=== PATIENT | female | born 2000 | race Caucasian/White ===

== ENCOUNTER 2023-05-30 11:49 | Outpatient (CLI) | payer OTHER, SELFPAY ==
--- NOTE | ~2023-05-30 | US_ITS ---
EXAMINATION: US venous doppler LE RT DATE: 05/30/2023 12:16 INDICATION: Right lower limb pain TECHNIQUE: Lincoln scale images without and with compression and Doppler images of the right lower extre mity veins were obtained. COMPARISON: None FINDINGS: The right common femoral vein, profunda femoral vein, femoral vein, popliteal vein, peronea l trunk, posterior tibial veins, and greater saphenous vein are patent. IMPRESSION: 1. Patent right lower extremity veins. No evidence of deep venous thrombosis. Reviewed, dictated and finalized at location A.
== END 2023-05-30 11:50 | disposition home or self-care (01) ==
LOC: ANHIMG 11:55
DX: M79.661 Pain in right lower leg (principal)
CPT/HCPCS: 93971

== ENCOUNTER 2023-06-28 11:47 | Observation (INO) | payer OTHER, SELFPAY ==
[2023-06-28] VITALS (18 sets, daily range): BP systolic 111–126; BP diastolic 64–76; PULSE 87–133; O2SAT 95–99; BMI 30.7
--- NOTE | 2023-06-28 12:04 | LDADM ---
This patient, Swapna Waddell, was admitted to OB Post 116 on 06/28/23 at 11:47. Plans for labor, pain management and were discussed with patient. Patient/family oriented to hospital policies and general routines including ID bracelet, bed and alarms, visiting hours, pain management, procedures, bathroom and other care routines, personal items, smoking policy, room service/diet and guest tray routines, infant security routines, and visiting hours. Patient/Family are encouraged to report perceived risks to care and to ask questions if they do not understand what they are told or what they should do. See OBIX for further documentation.
--- NOTE | 2023-06-28 12:25 | PC.NURSE ---
Patient was seen in office and was reza on monitor. Patient admitted for observation on L&D unit. Patient denies feeling any contractions. Patient states she has not had any water today. Patient given 1L of water to PO hydrate. fibronectin test sent and sterile cervical exam performed. Patient's cervix was found to be closed/50/-3.
[2023-06-28 13:34] LABS: Fetal Fibronectin Positive
--- NOTE | 2023-06-28 13:43 | PC.NURSE ---
Called CNM to report patient's regular contractions and positive FFN result as well as notify provider of cervical exam. Patient still denies feeling contractions, and they palpate very mild. Verbal orders received for one dose of Procardia XL and continue to monitor until hearing back from CNM.
--- NOTE | 2023-06-28 13:47 | PC.NURSE ---
Received callback from [facility]. Verbal orders received for steroid injection as well. Orders to continue monitoring patient for one hour and call provider back with update on patient status.
[2023-06-28] MEDS: BETAMETHASONE SOD PHOS/ACETATE 30 MG/5 ML VIAL 12 MG IM (13:55)
[2023-06-28] MEDS: NIFEdipine 30 MG TAB.ER.24 PO (13:55)
--- NOTE | 2023-06-28 14:52 | PC.NURSE ---
Called CNM and reported heart tones are still Category I, but the patient is still reza (palpating mildly) every 1-4 minutes. Patient still demies feeling any contractions. Verbal orders placed for 0.25mg subQ terbutaline.
[2023-06-28] MEDS: TERBUTALINE SULFATE 1 MG/ML VIAL 0.25 MG SUB-Q (14:58)
--- NOTE | 2023-06-28 15:59 | PC.NURSE ---
Updated CNM on continued monitoring. FHT still Category I. Notified provider that patient is still reza but not feeling any of them, and they have spaced out from where they were. Verbal orders given for discharge with instructions for patient to return to unit if she begins feeling any contractions at home as well as labor precautions. Patient to return tomorrow 06/29/23 for her second dose of celestone. Patient agrees with plan of care and has no questions at this time.
--- NOTE | 2023-07-02 08:09 | PM.OBTRLD ---
OB - Triage/Final Diagnosis Visit Information Date of evaluation: 06/28/23 Reason for evaluation: threatened labor Comments/Additional reasons for admission: I have assessed the risk for this patient, Swapna Waddell, and determined that she would benefit from observation care. Evaluation Laboratory results: Laboratory Tests 06/28/23 12:35 Fibronectin Positive
== END 2023-06-28 16:17 | disposition home or self-care (01) ==
PROVIDERS: Admitting Provider Obstetrics & Gynecology; Referring Provider Advanced Practice Midwife; Visit Provider Obstetrics & Gynecology
DX: O47.9 False labor, unspecified (principal)
CPT/HCPCS: 82731; 96372; A9270; G0378; G0379; J0702; J3105

== ENCOUNTER 2023-06-29 13:53 | Outpatient (CLI) | payer OTHER, SELFPAY ==
[2023-06-29] MEDS: BETAMETHASONE SOD PHOS/ACETATE 30 MG/5 ML VIAL 12 MG IM (14:04)
== END 2023-06-29 13:54 | disposition home or self-care (01) ==
LOC: ANHOBOP 13:59
PROVIDERS: Visit Provider Obstetrics & Gynecology
DX: Z34.90 Encounter for supervision of normal pregnancy, unspecified, unspecified trimester (principal); Z3A.00 Weeks of gestation of pregnancy not specified
CPT/HCPCS: 96372; J0702

== ENCOUNTER 2023-06-30 10:48 | Observation (INO) | payer OTHER, SELFPAY ==
[2023-06-30] VITALS (15 sets, daily range): BP systolic 107–115; BP diastolic 60–62; PULSE 94–124; TEMP 36.6; O2SAT 100
--- NOTE | 2023-06-30 11:49 | OBADM ---
This patient, Swapna Waddell, admitted to the OB room OB Post 116 for observation. Patient/family oriented to hospital policies and general routines including ID bracelet, bed and alarms, visiting hours, pain management, procedures, bathroom and other care routines, personal items, smoking policy, room service/diet, and visiting hours. Patient/Family are encouraged to report perceived risks to care and to ask questions if they do not understand what they are told or what they should do.
[2023-06-30 11:56] LABS: Appearance Urine Clear (Clear); Bilirubin Urine Negative (Negative); Blood Urine Negative (Negative); Color Urine Yellow (Yellow); Glucose Urine UA Negative (Negative); Ketones Urine 4+ mg/dL (Negative); Leukocyte Esterase Ur Negative LEU/UL (Negative); Nitrate Urine Negative (Negative); Protein Urine Negative (Negative); Specific Grav Ur 1.012 (1.001-1.035); Urobilinogen Urine 0.2 mg/dL (<2.0)
[2023-06-30 12:38] LABS: Add Urine Microscopic? NO
[2023-06-30] MEDS: TERBUTALINE SULFATE 1 MG/ML VIAL 0.25 MG SUB-Q (12:52)
--- NOTE | 2023-07-26 11:23 | P.PNOB_ITS ---
OB - Triage/Final Diagnosis Visit Information Comments/Additional reasons for admission: I have assessed the risk for this patient, Swapna Waddell, and determined that she would benefit from observation care. Evaluation Laboratory results: Laboratory Tests 06/30/23 11:27 Urine Color Yellow Urine Appearance Clear Urine pH 6.0 Ur Specific [place] 1.012 Urine Protein Negative Urine Glucose (UA) Negative Urine Ketones 4+ H Ur Blood (Man) Negative Urine Nitrate Negative Urine Bilirubin Negative Urine Urobilinogen 0.2 Leukocyte Esterase Rfl Negative Final Diagnosis (1) False labor: Code(s): O47.9 - False labor, unspecified Status: Acute
== END 2023-06-30 13:56 | disposition home or self-care (01) ==
PROVIDERS: Admitting Provider Obstetrics & Gynecology; Visit Provider Obstetrics & Gynecology
DX: O47.03 False labor before 37 completed weeks of gestation, third trimester (principal); Z3A.33 33 weeks gestation of pregnancy
CPT/HCPCS: 81003; 96372; G0378; G0379; J3105

== ENCOUNTER 2023-08-07 06:02 | Inpatient (IN) | payer OTHER, SELFPAY ==
[2023-08-07] VITALS (240 sets, daily range): BP systolic 62–146; BP diastolic 32–101; PULSE 91–177; RESP 16–18; TEMP 36.3–37.2; O2SAT 92–100; BMI 31.1
--- NOTE | 2023-08-07 07:10 | ADMGEN ---
This patient, Swapna Waddell, was admitted to Labor/Delivery/Recovery 103-00. Patient/family oriented to hospital policies and general routines including ID bracelet, bed and alarms, visiting hours, pain management, procedures, bathroom and other care routines, personal items, smoking policy, room service/diet, and visiting hours. Information on how to activate the Rapid Response Team has been discussed. Patient/Family are encouraged to report perceived risks to care and to ask questions if they do not understand what they are told or what they should do.
[2023-08-07 07:21] LABS: Glucose Point of Care 96 mg/dl (65-105)
[2023-08-07 07:33] LABS: Basophils Absolute Auto 0.1 K/mm3 (0.0-0.1); Basophils Percent Auto 0.4 % (0.2-1.2); Eosinophils Absolute Auto 0.1 K/mm3 (0-0.3); Eosinophils Percent Auto 0.7 % (0-4.4); Hematocrit 37.6 % (37.0-47.0); Hemoglobin 12.4 g/dL (12.0-15.0); Immature Granulocyte Absolute 0.24 K/mm3 (0.00-0.031); Immature Granulocyte Percent A 1.8 % (0-0.5); Lymphocytes Absolute Auto 2.17 K/mm3 (0.9-3.2); Lymphocytes Percent Auto 16.2 % (18.3-44.2); Mean Platelet Volume 9.7 fl (7.4-10.4); Monocytes Absolute Auto 0.8 K/mm3 (0.1-0.6); Monocytes Percent Auto 5.7 % (2.6-8.5); Neutrophils Absolute Auto 10.1 K/mm3 (1.3-6.7); Neutrophils Percent Auto 75.2 % (45.5-73.1); Platelet Count Result 185 k/mm3 (150-375); White Blood Count 13.4 K/mm3 (4.5-10.0)
--- NOTE | 2023-08-07 08:06 | WPDOBADMIT ---
Obstetrics - Admit Note Admission Note: record reviewed. No pertinent additions to the history and/or any subsequent changes in the physical findings that are not consistent with the expected course of the were found. Additions to the history and/or subsequent changes in the physical findings follow. IOL GDMA-1, SVE3/80/-2 AROM clear fluid, anticipate vaginal delivery
[2023-08-07] MEDS: LACTATED RINGERS 1,000 ML 125 ML IV CONT ×3 (10:44→17:00)
[2023-08-07 11:03] LABS: Rapid Plasma Reagin Non-Reactive (NonReactive)
[2023-08-07 11:10] LABS: Glucose Point of Care 104 mg/dl (65-105)
[2023-08-07] MEDS: fentaNYL CITRATE INJ (*CRX) 100 MCG/2 ML VIAL IV PUSH (11:35)
[2023-08-07 14:19] LABS: Glucose Point of Care 85 mg/dl (65-105)
--- NOTE | 2023-08-07 14:37 | WPDANESEPPF ---
Anes - Initial Pre Proc Eval Procedure: labor epidural Date/Time: 08/07/23 14:37 Surgeon: Rip Almanza MD Pre Op Diagnosis: labor pain Pre Op Diagnosis: IOL Patient Data Age: 23 Gender: F Height: 1.5 m Weight: 70 kg Last Vital Signs Temp 36.4 C L 08/07/23 13:00 Pulse 101 H 08/07/23 14:30 BP 135/77 08/07/23 14:30 Pulse Ox 100 08/07/23 14:34 O2 Del Method Room Air 08/07/23 07:07 Allergies Allergy/AdvReac Type Severity Reaction Status Date / Time No Known Allergies Allergy Verified 08/07/23 09:22 Home Medications Medication Instructions Recorded Confirmed Type vits no.126-ferrous fum 1 tablet PO DAILY 06/28/23 08/07/23 History 28 mg iron-folic acid 800 mcg tablet (Classic ) ferrous sulfate 325 mg (65 mg 325 mg PO DAILY 07/12/23 08/07/23 History iron) tablet Laboratory Tests 08/07/23 08/07/23 08/07/23 06:55 07:04 11:04 WBC 13.4 H K/mm3 (4.5-10.0) RBC 4.00 L M/mm3 (4.2-5.4) Hgb 12.4 g/dL (12.0-15.0) Hct 37.6 % (37.0-47.0) MCV 94.0 fl (80-100) MCH 31.0 pg (26-34) MCHC 33.0 g/dl (32-36) RDW 14.0 % (11.5-14.5) Plt Count 185 k/mm3 (150-375) MPV 9.7 fl (7.4-10.4) Immature Gran % (Auto) 1.8 H % (0-0.5) Neut % (Auto) 75.2 H % (45.5-73.1) Lymph % (Auto) 16.2 L % (18.3-44.2) [place] % (Auto) 5.7 % (2.6-8.5) Eos % (Auto) 0.7 % (0-4.4) Baso % (Auto) 0.4 % (0.2-1.2) Lymph # (Auto) 2.17 K/mm3 (0.9-3.2) [place] # (Auto) 0.8 H K/mm3 (0.1-0.6) Eos # (Auto) 0.1 K/mm3 (0-0.3) Baso # (Auto) 0.1 K/mm3 (0.0-0.1) Abs Immat Gran (auto) 0.24 H K/mm3 (0.00-0.031) Absolute Neuts (auto) 10.1 H K/mm3 (1.3-6.7) Absolute Nucleated RBC 0.0 K/mm3 (0.0-0.012) Nucleated RBC % 0.0 % (0.0-0.2) POC Capillary Glucose 96 mg/dl 104 mg/dl (65-105) (65-105) RPR Non-reactive (NonReactive) Blood Type A Positive Antibody Screen Negative 08/07/23 14:16 WBC RBC Hgb Hct MCV MCH MCHC RDW Plt Count MPV Immature Gran % (Auto) Neut % (Auto) Lymph % (Auto) [place] % (Auto) Eos % (Auto) Baso % (Auto) Lymph # (Auto) [place] # (Auto) Eos # (Auto) Baso # (Auto) Abs Immat Gran (auto) Absolute Neuts (auto) Absolute Nucleated RBC Nucleated RBC % POC Capillary Glucose 85 mg/dl (65-105) RPR Blood Type Antibody Screen Patient hx anesthesia problems: none Family hx anesthesia problems: none Results Review: All pre-operative results and documents have been reviewed as part of the pre-operative evaluation. [facility] Past Medical History Medical History (Updated 08/07/23 @ 14:38 by Temo Cotton DO) GDM (gestational diabetes mellitus) Family History Family History (Updated 07/12/23 @ 12:15 by Estelle Mchugh RN) Other Patient denies significant medical history Social History Social History Smoking status: Never smoker Substance use: never Lack of Transportation: No Lack of Food: Never True Current Housing: I Have Housing Concerned About Future Housing: No Difficulty Paying Gas/Electric Bills: No Difficulty Paying for Meds: No Currently Unemployed: No Education: High School Diploma/GED Difficulty w/ Childcare or Family Care: No Spiritual care concerns: No Anes - Eval Final PreProcedure Day of Procedure 08/07/23 14:37 Patient weight: obese Heart: regular rate and rhythm Lungs: clear to auscultation Airway: Mallampati scale class II Neurological: alert and oriented Last oral intake: >/= 8 hours ASA classification: III Emergent: no Anes
[2023-08-07 15:58] LABS: Glucose Point of Care 84 mg/dl (65-105)
[2023-08-07 17:28] LABS: Glucose Point of Care 81 mg/dl (65-105)
--- NOTE | 2023-08-07 21:17 | PM.OP ---
Procedure Note - Brief Procedure Note - Brief Date of procedure: 08/07/23 IOL, failure to descend Procedure performed: Attempted vacuum extraction of fetus Surgeon: Rip Almanza MD Findings: kiwi vacuum was applied to the 's head in the occipital area. Infant was in the left occiput anterior position 3+ station vacuum was applied for 3 contractions for total of about 2 minutes there were no pop offs there was no episiotomy epidural anesthesia indication - maternal exhaustion and failure to descend vacuum was taken down in between contractions failed attempt
--- NOTE | 2023-08-07 21:24 | PM.IMHP ---
H&P: HPI History of Present Illness Date/Time: 08/07/23 21:24 Chief Complaint: failure to descend, failed vacuum Narrative: 23-year-old female who was induced at term for gestational diabetes, diet control. Induction progress to the +3 station where there was an arrest of descent. Reassuring heart tones throughout the labor and procedure. failed vacuum was performed. There is a procedure note. We are going to proceed to delivery. She understands the risk. She understands injuries may occur that result in hospitalization, more surgery, and severe illness. She understands risk of hemorrhage and infection. She denies any nausea, vomiting, fever, chills. She denies any chest pain shortness of breath. Review of Systems Review of Systems: All systems reviewed & are unremarkable except as noted in HPI and below Constitutional: Constitutional: Denies chills, Denies fatigue, Denies fever(s) and Denies weakness Eyes: Eyes: Denies blurry vision, Denies change in vision, Denies loss of peripheral vision, Denies loss of vision, Denies other visual disturbances and Denies eye pain ENT: Denies vertigo, Denies dizziness, Denies hearing loss, Denies mouth pain, Denies nasal obstruction, Denies neck mass and Denies neck pain Cardiovascular: Cardiovascular: Denies chest pain, Denies diaphoresis, Denies syncope, Denies leg edema and Denies dyspnea Respiratory: Respiratory: Denies chest congestion, Denies cough, Denies hemoptysis, Denies dyspnea and Denies wheezing Gastrointestinal: Gastrointestinal: Denies abdominal pain, Denies constipation, Denies diarrhea, Denies nausea and Denies vomiting Genitourinary: Genitourinary: Denies hematuria, Denies change in libido, Denies nocturia, Denies genital lesions, Denies flank pain and Denies urinary urgency Musculoskeletal: Musculoskeletal: Denies abnormal gait, Denies back pain, Denies myalgias, Denies arthralgias, Denies joint swelling, Denies muscle weakness and Denies neck pain Integumentary/Breasts: Skin/Breast: Denies swelling, Denies breast pain, Denies breast mass, Denies dry skin, Denies nipple discharge, Denies unusual bruising and Denies jaundice Neurologic: Denies Neuro-related abnormal movements, Denies Abnormal speech present, Denies abnormal gait, Denies behavioral changes, Denies confusion, Denies vertigo, Denies dizziness, Denies syncope, Denies loss of vision, Denies memory loss, Denies convulsions and Denies weakness Psychiatric: Psychiatric: Denies abnormal sleep pattern, Denies behavioral changes, Denies change in libido, Denies confusion, Denies depression, Denies anhedonia and Denies memory loss Endocrine: Endocrine: Reports no additional endocrine complaints, Denies change in libido and Denies fatigue Hematologic/Lymphatic: Hematologic/Lymphatic: Reports no additional hematologic/lymphatic complaints Allergic/Immunologic: Allergic/Immunologic: Reports no additional allergic/immunologic complaints and Denies wheezing PMFSH Past Medical History Medical History (Updated 08/07/23 @ 21:28 by Rip Almanza MD) GDM (gestational diabetes mellitus) Family History Family History (Updated 07/12/23 @ 12:15 by Estelle Mchugh RN) Other Patient denies significant medical history Social History Social History Smoking status: Never smoker Substance use: never Lack of Transportation: No Lack of Food: Never True Current Housing: I Have Housing Concerned About Future Housing: No Difficulty Paying Gas/Electric Bills: No Difficulty Paying for Meds: No Currently Unemployed: No Education: High School Diploma/GED Difficulty w/ Childcare or Family Care: No Spiritual care concerns: No Meds Home Medications and Allergies Home Medications Medication Instructions Recorded Confirmed Type vits no.126-ferrous fum 1 tablet PO DAILY 06/28/23 08/07/23 History 28 mg iron-folic acid 800 mcg tablet (Classic ) ferrou
--- NOTE | 2023-08-07 21:29 | WPDHPUPDATE1 ---
History and Physical Update Update Date/Time: 08/07/23 21:29 History and Physical has been reviewed, including an updated exam of the patient. There are NO changes in the patient's condition. Risks, benefits, and alternatives have been discussed and questions answered. Patient agrees to proceed with procedure.
[2023-08-07] MEDS: ceFAZolin 2 GM/D5W 50 ML 2 GM/50 ML BAG IVPB (21:30)
[2023-08-07] MEDS: AZITHROMYCIN 500 MG/NS 250 ML 500 MG/250 ML BAG 250 MG IVPB (21:30)
[2023-08-07 21:31] LABS: Glucose Point of Care 102 mg/dl (65-105)
--- NOTE | 2023-08-07 22:28 | W.PM.PROC2 ---
Procedure Note - Detailed Date of Procedure 08/07/23 Pre-op Diagnosis IOL , failure to descend, failed vacuum extraction, vaginal laceration Post-op Diagnosis Same Procedure Performed Low-transverse section Surgeon Rip Almanza MD Anesthesia Spinal Findings Normal gestational maternal anatomy, average size , normal Apgars. Description of Procedure The patient was taken the operating room. She was prepped and draped in dorsal supine position with a leftward tilt. This was done after spinal anesthetic was applied. A low-transverse skin incision was made and carried down till of the fascia with the knife. The fascial incision was made with the knife. The fascial incision was extended laterally with Leyva scissors. The fascia was tented upward superiorly and inferiorly the rectus muscles were dissected off bluntly. The rectus muscles were the midline. The preperitoneal fat and peritoneum were dissected open bluntly at the superior aspect of the rectus muscles. The peritoneal incision was extended superior and inferior with good position of bladder. The uterine incision was made with a scalpel down to the level of the amniotic cavity. The amniotic cavity was entered bluntly. The was delivered. The cord was clamped and cut and the infant was handed off to waiting pediatric staff. Cord bloods were obtained. The placenta was removed manually. The uterus was exteriorized. The uterus was cleared of all clots, debris and membranes. The uterus was closed in 0 Vicryl running lock fashion. An imbricating over a was placed along the incision line as well. The uterus was returned to the abdomen. The gutters were cleared of all clots and debris. The fascia was closed with 0 Vicryl running fashion. The subcutaneous tissue was irrigated pinpoint bleeders were cauterized. The skin was closed with subcuticular absorbable ishaan. The skin incision line was covered with glue. vaginal laceration was closed with a running 0 Vicryl, locked. This was the midline laceration. There were distal left lateral vaginal lacerations that were closed with interrupted [id number] sutures. Was hemostatic at the end of the closure. The patient tolerated the procedure well. She has taken recovery room in stable condition. Sponge lap and needle counts were correct x2. Complications No immediate complications Condition Stable Disposition PACU
[2023-08-07] MEDS: OXYTOCIN 30 UNITS/NS 500 ML 30 UNITS/500 ML BAG 125 UNITS IV CONT (22:57)
[2023-08-07] MEDS: METHYLERGONOVINE MALEATE 0.2 MG/ML VIAL IM (22:58)
[2023-08-07 23:27] LABS: Hematocrit 27.1 % (37.0-47.0); Hemoglobin 8.8 g/dL (12.0-15.0); Mean Corpuscular HGB Conc 32.5 g/dl (32-36); Mean Corpuscular Hemoglobin 30.9 pg (26-34); Mean Corpuscular Volume 95.1 fl (80-100); Mean Platelet Volume 9.7 fl (7.4-10.4); Platelet Count Result 143 k/mm3 (150-375); Red Blood Count 2.85 M/mm3 (4.2-5.4); Red Cell Distribution Width 13.9 % (11.5-14.5); White Blood Count 31.2 K/mm3 (4.5-10.0)
[2023-08-08] VITALS (75 sets, daily range): BP systolic 90–117; BP diastolic 42–67; PULSE 99–141; RESP 16–20; TEMP 36.4–36.9; O2SAT 96–100
[2023-08-08] MEDS: miSOPROStol 200 MCG TABLET 800 MCG RECTAL (00:47)
[2023-08-08] MEDS: LORazepam INJ (*CRX) 2 MG/ML VIAL 1 MG IV PUSH (00:47)
[2023-08-08] MEDS: DEXTROSE 5%/LACTATED RINGERS 1,000 ML 125 ML (03:05)
[2023-08-08] MEDS: KETOROLAC 30 MG/ML VIAL (*BKC) IV PUSH (05:35)
[2023-08-08 05:50] LABS: Basophils Absolute Auto 0.1 K/mm3 (0.0-0.1); Basophils Percent Auto 0.3 % (0.2-1.2); Hemoglobin 7.6 g/dL (12.0-15.0); Immature Granulocyte Absolute 0.31 K/mm3 (0.00-0.031); Immature Granulocyte Percent A 1.1 % (0-0.5); Lymphocytes Absolute Auto 1.46 K/mm3 (0.9-3.2); Lymphocytes Percent Auto 5.1 % (18.3-44.2); Mean Corpuscular Hemoglobin 31.4 pg (26-34); Monocytes Absolute Auto 1.2 K/mm3 (0.1-0.6); Monocytes Percent Auto 4.3 % (2.6-8.5); Neutrophils Absolute Auto 25.7 K/mm3 (1.3-6.7); Neutrophils Percent Auto 89.2 % (45.5-73.1); Platelet Count Result 132 k/mm3 (150-375); Red Blood Count 2.42 M/mm3 (4.2-5.4); Red Cell Distribution Width 13.9 % (11.5-14.5); White Blood Count 28.8 K/mm3 (4.5-10.0)
[2023-08-08 07:07] LABS: Anisocytosis 1+ (NORMAL); Hypochromasia 3+ (NORMAL); Platelet Estimate Adequate (Adequate); Schistocytes None Seen (NORMAL); Tear Drop Cells 1+ (NORMAL)
--- NOTE | 2023-08-08 08:01 | PC.NURSE ---
Kahlil Marquis CNM in to see pt and informed of CBC from this morning, fundus required massage to become totally firm, pt didn't have much on her peripad before I rubbed on her uterus, but with fundal massage, she had more flow than I would like to see. Order received for 2 units of blood and PO Methergine x's 3 doses. To leave kline in until at least 1 unit of the blood has infused and pt tolerates being up in chair.
[2023-08-08] MEDS: METHYLERGONOVINE MALEATE 0.2 MG TABLET PO ×2 (08:45→17:17)
--- NOTE | 2023-08-08 08:49 | PM.OBPNVD ---
OB - PN: Subj Subjective Date/time seen: 08/08/23 08:49 Interval history: pp day 1 failed vacuum extraction, primary section doing well plan blood transfusion plan oral methergine OB - PN: Obj Data Labs 08/08/23 05:46 Labs: Laboratory Results - last 24 hr 08/07/23 08/07/23 08/07/23 06:55 11:04 14:16 WBC RBC Hgb Hct MCV MCH MCHC RDW Plt Count MPV Immature Gran % (Auto) Neut % (Auto) Lymph % (Auto) [place] % (Auto) Eos % (Auto) Baso % (Auto) Lymph # (Auto) [place] # (Auto) Eos # (Auto) Baso # (Auto) Abs Immat Gran (auto) Absolute Neuts (auto) Absolute Nucleated RBC Nucleated RBC % Platelet Estimate Hypochromasia Anisocytosis Tear Drop Cells Schistocytes POC Capillary Glucose 104 85 RPR Non-reactive Blood Type A Positive Antibody Screen Negative Crossmatch See Detail 08/07/23 08/07/23 08/07/23 15:53 17:20 20:06 WBC RBC Hgb Hct MCV MCH MCHC RDW Plt Count MPV Immature Gran % (Auto) Neut % (Auto) Lymph % (Auto) [place] % (Auto) Eos % (Auto) Baso % (Auto) Lymph # (Auto) [place] # (Auto) Eos # (Auto) Baso # (Auto) Abs Immat Gran (auto) Absolute Neuts (auto) Absolute Nucleated RBC Nucleated RBC % Platelet Estimate Hypochromasia Anisocytosis Tear Drop Cells Schistocytes POC Capillary Glucose 84 81 102 RPR Blood Type Antibody Screen Crossmatch 08/07/23 08/08/23 23:21 05:46 WBC 31.2 H 28.8 H RBC 2.85 L 2.42 L Hgb 8.8 L D 7.6 L Hct 27.1 L 23.0 L MCV 95.1 95.0 MCH 30.9 31.4 MCHC 32.5 33.0 RDW 13.9 13.9 Plt Count 143 L 132 L MPV 9.7 9.0 Immature Gran % (Auto) 1.1 H Neut % (Auto) 89.2 H Lymph % (Auto) 5.1 L [place] % (Auto) 4.3 Eos % (Auto) 0.0 Baso % (Auto) 0.3 Lymph # (Auto) 1.46 [place] # (Auto) 1.2 H Eos # (Auto) 0.0 Baso # (Auto) 0.1 Abs Immat Gran (auto) 0.31 H Absolute Neuts (auto) 25.7 H Absolute Nucleated RBC 0.0 Nucleated RBC % 0.0 Platelet Estimate Adequate Hypochromasia 3+ Anisocytosis 1+ Tear Drop Cells 1+ Schistocytes None seen POC Capillary Glucose RPR Blood Type Antibody Screen Crossmatch OB - PN A/P Plan day: 1 Plan: routine care Time Spent With Patient Time: Total time spent is greater than 50% in coordination of care (as documented) at patient's floor/unit and/or counseling patient: Review of Systems Review of Systems: All systems reviewed & are unremarkable except as noted in HPI and below Exam Const: General: cooperative, healthy appearing and comfortable Chest: Chest palpation & inspection: normal inspection of the chest Resp: Effort & Inspection: normal respiratory effort Cardio: Rate: regular rate GI: Other: incision CDI Skin: General skin exam: normal color Neuro: General: patient oriented x3 Extrem: Right lower extremity: normal to inspection Left lower extremity: normal to inspection Psych: Appearance: grossly normal
[2023-08-08] MEDS: SODIUM CHLORIDE 0.9% IV 250 ML 30 ML IV CONT (09:15)
[2023-08-08] MEDS: WITCH HAZEL 40 PADS 1 PAD TOPICAL (11:18)
[2023-08-08] MEDS: MULTIVIT/MIN/PREN/FOL AC/IRON TABLET 1 TAB PO (11:18)
[2023-08-08] MEDS: POLYSACCHARIDE IRON COMPLEX 150 MG CAPSULE PO ×2 (11:18→17:00)
[2023-08-08] MEDS: DOCUSATE SODIUM 100 MG CAPSULE PO ×2 (11:18→17:16)
[2023-08-08] MEDS: BENZOCAINE 20% AER SPR (*SP) 56 GM CAN 1 SPRAY TOPICAL (11:18)
--- NOTE | 2023-08-08 12:39 | OBPPTRN ---
Patient transferred to post room # 286 via bed accompanied by fob and infant. PT alert and awake. PT introductions made and plan of care discussed per post op c section, pain management, breast feeding, daily care activities and blood product administrations. PT and fob both recipients of such instructions and no barriers to learning identified. PT received such instructions per one to one discussion, mom baby care guide and demonstrations. Oriented to unit, room, information board, rooming in, admission packet and security measures. Patient verbalizes understanding.
[2023-08-08] MEDS: SIMETHICONE 80 MG TAB.CHEW PO ×2 (13:08→17:17)
[2023-08-08] MEDS: HYDROcodone/acetaminophen (*CRX) 5-325 MG TABLET 1 TAB PO ×3 (13:09→21:38)
[2023-08-08] MEDS: IBUPROFEN 600 MG TABLET PO ×2 (13:09→21:39)
[2023-08-08] MEDS: SODIUM CHLORIDE 0.9% IV 500 ML 30 ML (14:07)
[2023-08-08] MEDS: TUBING, BLOOD PLUM PUMP TUBING 1 EACH XX (14:07)
[2023-08-09] MEDS: METHYLERGONOVINE MALEATE 0.2 MG TABLET PO (00:37)
[2023-08-09] MEDS: IBUPROFEN 600 MG TABLET PO ×3 (05:33→22:48)
[2023-08-09] MEDS: HYDROcodone/acetaminophen (*CRX) 5-325 MG TABLET 1 TAB PO ×3 (05:33→22:51)
[2023-08-09 05:42] LABS: Basophils Absolute Auto 0.1 K/mm3 (0.0-0.1); Basophils Percent Auto 0.3 % (0.2-1.2); Eosinophils Percent Auto 0.1 % (0-4.4); Hematocrit 31.4 % (37.0-47.0); Hemoglobin 10.4 g/dL (12.0-15.0); Immature Granulocyte Absolute 0.51 K/mm3 (0.00-0.031); Immature Granulocyte Percent A 1.9 % (0-0.5); Lymphocytes Absolute Auto 2.63 K/mm3 (0.9-3.2); Lymphocytes Percent Auto 9.5 % (18.3-44.2); Mean Corpuscular HGB Conc 33.1 g/dl (32-36); Mean Corpuscular Hemoglobin 30.8 pg (26-34); Mean Corpuscular Volume 92.9 fl (80-100); Mean Platelet Volume 9.6 fl (7.4-10.4); Monocytes Absolute Auto 1.2 K/mm3 (0.1-0.6); Monocytes Percent Auto 4.2 % (2.6-8.5); Neutrophils Absolute Auto 23.2 K/mm3 (1.3-6.7); Platelet Count Result 146 k/mm3 (150-375); Red Blood Count 3.38 M/mm3 (4.2-5.4); Red Cell Distribution Width 14.9 % (11.5-14.5); White Blood Count 27.6 K/mm3 (4.5-10.0)
--- NOTE | 2023-08-09 07:49 | PM.OBPNVD ---
OB - PN: Subj Subjective Date/time seen: 08/09/23 07:49 Interval history: pp day 2 failed vacuum extraction, primary section doing well bleeding minimal, flatus present elevated wbc, afebrile plan antibiotics x 24 hours OB - PN: Obj Data Labs 08/09/23 05:29 Labs: Laboratory Results - last 24 hr 08/07/23 08/09/23 06:55 05:29 WBC 27.6 H RBC 3.38 L Hgb 10.4 L Hct 31.4 L MCV 92.9 MCH 30.8 MCHC 33.1 RDW 14.9 H Plt Count 146 L MPV 9.6 Immature Gran % (Auto) 1.9 H Neut % (Auto) 84.0 H Lymph % (Auto) 9.5 L [place] % (Auto) 4.2 Eos % (Auto) 0.1 Baso % (Auto) 0.3 Lymph # (Auto) 2.63 [place] # (Auto) 1.2 H Eos # (Auto) 0.0 Baso # (Auto) 0.1 Abs Immat Gran (auto) 0.51 H Absolute Neuts (auto) 23.2 H Absolute Nucleated RBC 0.0 Nucleated RBC % 0.0 Blood Type A Positive Antibody Screen Negative Crossmatch See Detail OB - PN A/P Plan day: 2 Plan: routine care Time Spent With Patient Time: Total time spent is greater than 50% in coordination of care (as documented) at patient's floor/unit and/or counseling patient: Review of Systems Review of Systems: All systems reviewed & are unremarkable except as noted in HPI and below Exam Const: General: cooperative and healthy appearing Chest: Chest palpation & inspection: normal inspection of the chest Cardio: Rate: regular rate GI: Other: incision cdi Psych: Appearance: grossly normal
[2023-08-09] MEDS: MULTIVIT/MIN/PREN/FOL AC/IRON TABLET 1 TAB PO (08:41)
[2023-08-09] MEDS: DOCUSATE SODIUM 100 MG CAPSULE PO ×2 (08:41→17:11)
[2023-08-09] MEDS: AMPICILLIN 2 GM/NS 100 ML 2 GM/100 ML BAG IVPB ×4 (08:41→21:25)
[2023-08-09 08:50] VITALS: BP 96/55; PULSE 92; RESP 16; TEMP 36.3; O2SAT 99
[2023-08-09] MEDS: SODIUM CHLORIDE 0.9% IV 100 ML 30 ML (13:09)
[2023-08-09 21:20] VITALS: BP 98/56; PULSE 107; RESP 18; TEMP 36.4
[2023-08-10] MEDS: AMPICILLIN 2 GM/NS 100 ML 2 GM/100 ML BAG IVPB (01:30)
[2023-08-10 05:51] LABS: Basophils Absolute Auto 0.1 K/mm3 (0.0-0.1); Basophils Percent Auto 0.5 % (0.2-1.2); Eosinophils Absolute Auto 0.2 K/mm3 (0-0.3); Hematocrit 28.9 % (37.0-47.0); Hemoglobin 9.2 g/dL (12.0-15.0); Immature Granulocyte Percent A 2.7 % (0-0.5); Lymphocytes Absolute Auto 3.64 K/mm3 (0.9-3.2); Lymphocytes Percent Auto 19.8 % (18.3-44.2); Mean Corpuscular HGB Conc 31.8 g/dl (32-36); Mean Corpuscular Hemoglobin 30.3 pg (26-34); Mean Corpuscular Volume 95.1 fl (80-100); Mean Platelet Volume 9.5 fl (7.4-10.4); Monocytes Absolute Auto 0.8 K/mm3 (0.1-0.6); Monocytes Percent Auto 4.1 % (2.6-8.5); Neutrophils Absolute Auto 13.2 K/mm3 (1.3-6.7); Neutrophils Percent Auto 71.9 % (45.5-73.1); Platelet Count Result 160 k/mm3 (150-375); Red Blood Count 3.04 M/mm3 (4.2-5.4); White Blood Count 18.4 K/mm3 (4.5-10.0)
[2023-08-10 07:45] VITALS: BP 109/75; PULSE 80; RESP 18; TEMP 37.1
--- NOTE | 2023-08-10 07:58 | PM.OBPNVD ---
OB - PN: Subj Subjective Date/time seen: 08/10/23 07:58 Interval history: pp day 2 failed vacuum extraction, primary section doing well bleeding minimal, flatus present elevated wbc, afebrile plan antibiotics x 24 hours Patient comments: no complaints, pain well controlled, incisional pain, tolerating diet and flatus present OB - PN: Obj Data Labs 08/10/23 05:32 Labs: Laboratory Results - last 24 hr 08/10/23 05:32 WBC 18.4 H RBC 3.04 L Hgb 9.2 L Hct 28.9 L MCV 95.1 MCH 30.3 MCHC 31.8 L RDW 15.0 H Plt Count 160 MPV 9.5 Immature Gran % (Auto) 2.7 H Neut % (Auto) 71.9 Lymph % (Auto) 19.8 [place] % (Auto) 4.1 Eos % (Auto) 1.0 Baso % (Auto) 0.5 Lymph # (Auto) 3.64 H [place] # (Auto) 0.8 H Eos # (Auto) 0.2 Baso # (Auto) 0.1 Abs Immat Gran (auto) 0.50 H Absolute Neuts (auto) 13.2 H Absolute Nucleated RBC 0.0 Nucleated RBC % 0.0 OB - PN A/P Plan day: 3 Plan: routine care, discharge home and other Comments: Incision check in one week. Given precautions Time Spent With Patient Time: Total time spent is greater than 50% in coordination of care (as documented) at patient's floor/unit and/or counseling patient: Exam Const: General: comfortable, no acute distress and alert Resp: Effort & Inspection: normal respiratory effort Auscultation: no crackles, no rales and no rhonchi Cardio: Rate: regular rate Heart sounds: no click, no murmurs and no rubs GI: Inspection: non-distended GI Palp: No Tenderness to palpation present (GI) Auscultation: normal bowel sounds Other: Incision - CDI Extrem: General: normal to inspection, no pedal edema and no calf tenderness
--- NOTE | 2023-08-10 08:32 | PM.OBDSVD ---
DS: Admitting Diagnosis Discharge Date August 10 2023 Admitting Diagnosis term DS: Discharge Diagnosis Discharge Diagnosis (1) Previous delivery, delivered: Code(s): O34.219 - Maternal care for unspecified type scar from previous delivery Status: Acute OB - DS: Summary OB Procedures : None OB Procedures Intrapartum: OB Procedures: : None Peripartum Data Procedures: Procedures Operation Date: 08/07/23 21:30 <No data on this case meets the specified criteria> Operation Date: 08/07/23 21:30 Actual Procedure Side Surgeon p Section Not Applicable Rip Almanza MD Time Spent with Patient Time attestation: Total time spent providing and/or coordinating discharge services: DS: Data Data Completed and Pending Labs on day of discharge: Labs from last 24 hours 08/10/23 05:32 WBC 18.4 H RBC 3.04 L Hgb 9.2 L Hct 28.9 L MCV 95.1 MCH 30.3 MCHC 31.8 L RDW 15.0 H Plt Count 160 MPV 9.5 Immature Gran % (Auto) 2.7 H Neut % (Auto) 71.9 Lymph % (Auto) 19.8 Coles % (Auto) 4.1 Eos % (Auto) 1.0 Baso % (Auto) 0.5 Lymph # (Auto) 3.64 H Coles # (Auto) 0.8 H Eos # (Auto) 0.2 Baso # (Auto) 0.1 Abs Immat Gran (auto) 0.50 H Absolute Neuts (auto) 13.2 H Absolute Nucleated RBC 0.0 Nucleated RBC % 0.0 Discharge Plan Discharge Discharging Clinician: Rip Almanza Patient Disposition: Home, Self-Care Activity: pelvic rest Diet: regular Patient Instructions: Antibiotic Form Stand Alone Forms: General Discharge Information Follow-up/Referrals: Rip Almanza MD [Physician] - Discharge Medications: New oxycodone-acetaminophen 5-325 mg tablet 1 tablet PO Q4H PRN (Reason: pain) Qty: 25 0RF Continued Classic 28 mg iron- 800 mcg Tablet 1 tablet PO DAILY ferrous sulfate 325 mg (65 mg iron) Tablet 325 mg PO DAILY Date of admission: 08/07/23 06:02 Primary Care Provider: PHYSICIAN,W[employer] SPECIALIST Admitting Provider: Rip Almanza Attending physician on admission: Rip Almanza Condition: Stable
[2023-08-10] MEDS: POLYSACCHARIDE IRON COMPLEX 150 MG CAPSULE PO (09:25)
[2023-08-10] MEDS: DOCUSATE SODIUM 100 MG CAPSULE PO (09:25)
[2023-08-10] MEDS: IBUPROFEN 600 MG TABLET PO (09:26)
[2023-08-10] MEDS: MULTIVIT/MIN/PREN/FOL AC/IRON TABLET 1 TAB PO (09:26)
[2023-08-10] MEDS: HYDROcodone/acetaminophen (*CRX) 5-325 MG TABLET 1 TAB PO (09:26)
[2023-08-10] MEDS: WITCH HAZEL 40 PADS 1 PAD TOPICAL (09:28)
[2023-08-12 15:56] VITALS: BP 112/70; PULSE 100; RESP 20; TEMP 36.9; O2SAT 100
== END 2023-08-10 10:20 | disposition home or self-care (01) | DRG 540 ==
LOC: ANHLDR 06:08 → ANHOBPP 08-08 01:32 → ANHOB2 08-08 13:09
PROVIDERS: Advanced Practice Midwife; Admitting Provider Obstetrics & Gynecology; Visit Provider Obstetrics & Gynecology
PROC: 10D00Z1 Extraction of Products of Conception, Low, Open Approach (ICD-10-PCS; CPT 59514; principal; 2023-08-07 21:30)
DX: O24.420 Gestational diabetes mellitus in childbirth, diet controlled (principal); O71.4 Obstetric high vaginal laceration alone; O62.2 Other uterine inertia; Z37.0 Single live birth; O66.5 Attempted application of vacuum extractor and forceps; Z3A.39 39 weeks gestation of pregnancy; O77.0 Labor and delivery complicated by meconium in amniotic fluid; O75.81 Maternal exhaustion complicating labor and delivery
CPT/HCPCS: 36415; 36430; 82948; 85025; 85027; 86592; 86850; 86900; 86901; 86923; A9270; J0290; J0456; J0690; J1885; J2060; J2175; J2210; J2274; J2590; J2795; J3010; J7040; J7050; J7120; J7121; P9016

== ENCOUNTER 2023-08-27 12:56 | Emergency (ER) | payer OTHER, SELFPAY ==
--- NOTE | ~2023-08-27 | US_ITS ---
US right upper quadrant INDICATION: Epigastric pain. Nausea and vomiting. PROCEDURE: Realtime right upper abdominal ultrasound. COMPARISON: No prior studies for comparison. FINDINGS: The pancreas is normal without focal mass or pancreatic ductal dilation. Liver echotexture is normal without focal mass or intrahepatic biliary dilatation. There is normal directional flow i n the portal vein. There are gallstones. No gallbladder wall thickening or pericholecystic fluid. Common bile duct ankita ures 4 mm. No sonographic Haley's sign. IMPRESSION: 1: Cholelithiasis. Reviewed, dictated and finalized at location L. STANT READING TEACHER IMPRESSION: 1: Cholelithiasis.
[2023-08-27 13:15] VITALS: BP 109/62; PULSE 93; RESP 16; TEMP 36.4; O2SAT 100
--- NOTE | 2023-08-27 13:19 | ED.ABDPAIN ---
HPI - Abdominal Pain General Chief Complaint: Abdominal Pain Stated Complaint: upper abd pain Time Seen by Provider: 08/27/23 15:22 Source: patient Mode of arrival: ambulatory Limitations: no limitations History of Present Illness HPI narrative: Patient is a 23 y/o female who presents to the ED with c/o upper abdominal pain. Patient reports having pain for the last 3 days. She states pain starts in her epigastric region and radiates around bilaterally to her mid back. Pain typically only present after eating, lasting 30-40 minutes afterwards and resolves on its own. She ate a cheeseburger and ice cream from [employer] prior to her last episode of pain. Denies any abdominal pain currently. She does report N/V/D associated with the pain. Denies fevers. Denies rectal bleeding, melena. Patient is from -[place]. Denies lower abdominal pain r/t incision. She is not . Related Data Home Medications Medication Instructions Recorded Confirmed vits no.126-ferrous fum 1 tablet PO DAILY 06/28/23 08/07/23 28 mg iron-folic acid 800 mcg tablet (Classic ) ferrous sulfate 325 mg (65 mg 325 mg PO DAILY 07/12/23 08/07/23 iron) tablet Allergies Allergy/AdvReac Type Severity Reaction Status Date / Time No Known Allergies Allergy Verified 08/27/23 14:37 Review of Systems Constitutional: Constitutional: Denies fever(s) Gastrointestinal: Gastrointestinal: Reports abdominal pain, Reports diarrhea, Reports nausea and Reports vomiting Genitourinary: Genitourinary: Denies abnormal vaginal bleeding [facility] Past Medical History Medical History GDM (gestational diabetes mellitus) Family History Family History Other Patient denies significant medical history Social History Social History Smoking status: Never smoker Substance use: never Lack of Transportation: No Lack of Food: Never True Current Housing: I Have Housing Concerned About Future Housing: No Difficulty Paying Gas/Electric Bills: No Difficulty Paying for Meds: No Currently Unemployed: No Education: High School Diploma/GED Difficulty w/ Childcare or Family Care: No Spiritual care concerns: No Exam Const: General: healthy appearing and no acute distress Nutritional Appearance: well nourished Orientation/consciousness: patient oriented x3 Limitations: no limitations Resp: Effort & Inspection: normal respiratory effort Auscultation: clear to auscultation bilaterally Cardio: Rate: regular rate Rhythm: regular rhythm GI: GI Palp: Yes Soft to palpation and No Tenderness to palpation present (GI) Auscultation: normal bowel sounds Course Vital Signs Vital signs: Vital Signs Temperature 97.6 F 08/27/23 13:15 Pulse Rate 93 08/27/23 13:15 Respiratory Rate 16 08/27/23 13:15 Blood Pressure 109/62 08/27/23 13:15 Pulse Oximetry 100 08/27/23 13:15 Oxygen Delivery Room Air 08/27/23 13:15 Temperature 97.6 F 08/27/23 13:15 Pulse Rate 93 08/27/23 13:15 Respiratory Rate 16 08/27/23 13:15 Blood Pressure 109/62 08/27/23 13:15 Pulse Oximetry 100 08/27/23 13:15 Oxygen Delivery Room Air 08/27/23 13:15 MDM - Abdominal Pain MDM Narrative Medical decision making narrative: Patient presented to ED with several day Hx of upper abd pain with eating, associated with N/V/D. VSS upon arrival. Patient afebrile. Nontoxic appearing. No acute distress. Denying current pain. Basic laboratory studies unremarkable. No leukocytosis. CMP with minimal elevation of LFTs. Normal bili. Normal lipase. UA with 1+ leuk esterase, 11-20 WBC. Sent for culture. Patient w/o any urinary complaints at this time. Will defer tx at this time pending culture results. RUQ US obtained and showing cholelithiasis. Discus
[2023-08-27 13:27] LABS: Basophils Absolute Auto 0.1 K/mm3 (0.0-0.1); Basophils Percent Auto 0.8 % (0.2-1.2); Eosinophils Absolute Auto 0.1 K/mm3 (0-0.3); Eosinophils Percent Auto 1.5 % (0-4.4); Hematocrit 38.4 % (37.0-47.0); Hemoglobin 12.2 g/dL (12.0-15.0); Immature Granulocyte Absolute 0.02 K/mm3 (0.00-0.031); Immature Granulocyte Percent A 0.3 % (0-0.5); Lymphocytes Absolute Auto 2.75 K/mm3 (0.9-3.2); Lymphocytes Percent Auto 34.7 % (18.3-44.2); Mean Corpuscular HGB Conc 31.8 g/dl (32-36); Mean Corpuscular Hemoglobin 29.4 pg (26-34); Mean Corpuscular Volume 92.5 fl (80-100); Mean Platelet Volume 9.4 fl (7.4-10.4); Monocytes Absolute Auto 0.4 K/mm3 (0.1-0.6); Monocytes Percent Auto 4.8 % (2.6-8.5); Neutrophils Absolute Auto 4.6 K/mm3 (1.3-6.7); Neutrophils Percent Auto 57.9 % (45.5-73.1); Platelet Count Result 300 k/mm3 (150-375); Red Blood Count 4.15 M/mm3 (4.2-5.4); Red Cell Distribution Width 12.7 % (11.5-14.5); White Blood Count 7.9 K/mm3 (4.5-10.0)
[2023-08-27 13:38] LABS: Alanine Aminotransferase 53 U/L (6-35); Alkaline Phosphatase 141 U/L (38-126); Anion Gap 6 mmol/L (8-16); Aspartate Amino Transferase 42 U/L (14-36); Bilirubin,Total 0.6 mg/dL (0.2-1.3); Blood Urea Nitrogen 14 mg/dL (7-17); Carbon Dioxide 28 mmol/L (22-30); Chloride 106 mmol/L (98-107); Estimated Glomerular Filt Rate > 60; Glucose 94 mg/dL (65-110); Lipase 175 U/L (23-300); Potassium 4.7 mmol/L (3.4-5.0); Sodium 140 mmol/L (137-145)
[2023-08-27 14:58] LABS: Appearance Urine Clear (Clear); Bacteria Urine None Seen /hpf; Bilirubin Urine Negative (Negative); Blood Urine Negative (Negative); Color Urine Yellow (Yellow); Glucose Urine UA Negative (Negative); Ketones Urine Negative (Negative); Leukocyte Esterase Ur 1+ LEU/UL (Negative); Nitrate Urine Negative (Negative); Non Pathogenic Casts 0-2; Protein Urine Negative (Negative); RBC Urine 0-2 /hpf (0-2); Specific Grav Ur 1.019 (1.001-1.035); Squamous Epithelial Cell Urine None seen /hpf (Few); Urobilinogen Urine 0.2 mg/dL (<2.0)
[2023-08-27 15:10] LABS: Add Urine Microscopic? YES
== END 2023-08-27 16:23 | disposition home or self-care (01) ==
PROVIDERS: Emergency Medicine; Emergency Provider Physician Assistant
DX: K80.20 Calculus of gallbladder without cholecystitis without obstruction (principal)
CPT/HCPCS: 36415; 76705; 80053; 81001; 81025; 83690; 85025; 87086; 99284

== ENCOUNTER 2023-09-10 01:41 | Day surgery (SDC) | payer OTHER, SELFPAY ==
--- NOTE | 2023-09-05 17:22 | PC.NURSE ---
Report to the Outpatient Waiting Room, entrance under the green pavilion located off [facility], at time 1000 on date 09/10/23. Planned Procedure Time: 1200. Time changes happen often and if your time is changed the preop area will call you the afternoon before. - You and your visitor will be asked to self-screen and do not enter if you have any COVID symptoms. - A mask is optional within the hospital at this time. Patients may have clear liquids (water, carbonated beverages, clear teas, apple juice) until 3 hours prior to surgery with a maximum of 20 ounces. 0900 - No food from midnight until time of surgery - Infants may have breast milk until 4 hours before surgery, formula 6 hours prior to surgery. - Children will be allowed to drink immediately following surgery. If applicable, please bring a bottle or sippy cup to assist with drinking. Juice, water, soda, and popsicles are readily available. For infants on formula, please bring formula the day of surgery. Pacifiers are allowed. Take the following medications with a SIP of water the morning of surgery: hydrocodone DO NOT STOP ANY OF YOUR OTHER PRESCRIPTION MEDICATIONS PRIOR TO SURGERY ?EXCEPT THE FOLLOWING Medications to discontinue per physician vitamin, ferrous sulfate Date to take last dose 09/07/23 Please no make-up, nail filipino, hairspray, perfume, deodorant, or body powder the day of surgery. No jewelry (including any body piercings) or valuables the day of surgery, leave them at home. Please take a shower or bath the night before, or the morning of, surgery with an antibacterial soap. Wear comfortable, loose fitting clothing. Children are encouraged to wear pajamas. - Jewelry must be removed prior to entering the operating room. Rings and piercings that are not removed may be cut off. - The hospital will not accept responsibility for valuables. - Please leave all valuables, including medications, at home the day of surgery. If you are going home after surgery, a licensed steam train driver must drive you home. - NO public transportation without another adult if you receive anesthesia. - We recommend that an adult stay with you for 24 hours following discharge. - We also recommend that you do not drive, make important decision, drink alcoholic beverages, or take any drugs that were not prescribed by your health care provider for at least 24 hours after your discharge time. For Pediatric surgeries, we recommend two adults accompany the child home. Follow any additional instructions given to you from your surgeon. If you or anyone in your household have experienced Covid symptoms in the past week, please notify your surgeon or the nurse liaison at the phone number below for possible testing. Telephone instructions given to Patient- Swapna Waddell and asked if any additional questions and then verbalized understanding. Patient advised to call surgeon office or pre surgery nurse liaison [phone] if any additional questions.
[2023-09-05 17:31] VITALS: BMI 25.8
[2023-09-10] VITALS (8 sets, daily range): BP systolic 90–117; BP diastolic 48–69; PULSE 64–100; RESP 12–17; TEMP 36.1; O2SAT 100
[2023-09-10] MEDS: ACETAMINOPHEN 500 MG TABLET 1000 MG PO (10:23)
[2023-09-10] MEDS: LACTATED RINGERS 1,000 ML 30 ML IV CONT ×2 (10:49→13:17)
[2023-09-10] MEDS: KETOROLAC 15 MG/ML VIAL (*BKC) IV PUSH (10:51)
[2023-09-10] MEDS: INDOCYANINE GREEN 25 MG VIAL WITH DILUENT 3.75 MG IV PUSH (10:51)
[2023-09-10 10:55] LABS: Amylase 80 U/L (30-110)
--- NOTE | 2023-09-10 11:41 | WPDANESEPPF ---
Anes - Initial Pre Proc Eval Procedure: Operation Date: 09/10/23 12:00 Proposed Procedures p Laparoscopic Cholecystectomy, Davinci Assisted - Toro Sanders DO Date/Time: 09/10/23 11:41 Surgeon: Toro Sanders DO Pre Op Diagnosis: Sym Cholithiasis Patient Data Age: 23 Gender: F Height: 1.5 m Weight: 58 kg Last Vital Signs Temp 97 F L 09/10/23 10:25 Pulse 85 09/10/23 10:25 Resp 16 09/10/23 10:25 BP 105/67 09/10/23 10:25 Pulse Ox 100 09/10/23 10:25 O2 Del Method Room Air 09/10/23 10:25 Allergies Allergy/AdvReac Type Severity Reaction Status Date / Time No Known Allergies Allergy Verified 09/10/23 10:18 Home Medications Medication Instructions Recorded Confirmed Type vits no.126-ferrous fum 1 tablet PO DAILY 06/28/23 09/10/23 History 28 mg iron-folic acid 800 mcg tablet (Classic ) ferrous sulfate 325 mg (65 mg 325 mg PO DAILY 07/12/23 09/10/23 History iron) tablet hydrocodone 5 mg-acetaminophen 325 1 tablet PO Q6H PRN pain #15 tabs 08/27/23 09/10/23 Rx mg tablet Laboratory Tests 09/10/23 10:42 Amylase 80 U/L (30-110) Patient hx anesthesia problems: none Family hx anesthesia problems: none Results Review: All pre-operative results and documents have been reviewed as part of the pre-operative evaluation. [facility] Past Medical History Medical History (Updated 09/03/23 @ 14:08 by Astrid Vieira) GDM (gestational diabetes mellitus) Surgical History Surgical History (Updated 09/03/23 @ 13:47 by Maria Ines Fernandez MA) delivery delivered Family History Family History Other Patient denies significant medical history Social History Social History Smoking status: Never smoker Substance use: never Lack of Transportation: No Lack of Food: Never True Current Housing: I Have Housing Concerned About Future Housing: No Difficulty Paying Gas/Electric Bills: No Difficulty Paying for Meds: No Currently Unemployed: No Education: High School Diploma/GED Difficulty w/ Childcare or Family Care: No Living arrangements: alone Spiritual care concerns: No Anes - Eval Final PreProcedure Day of Procedure 09/10/23 11:41 Patient weight: normal Heart: regular rate and rhythm Lungs: clear to auscultation Airway: Mallampati scale class II Neurological: alert and oriented Last oral intake: >/= 8 hours ASA classification: II Emergent: no Anesthetic plan: proceed Anesthesia type and monitoring: general ETT and standard monitoring Results Review: All pre-operative results and documents have been reviewed as part of the pre-operative evaluation. Informed Consent: The patient's anesthetic plan and its attendant risks and benefits were discussed with the patient/family/POA. Questions were solicited and answers provided to the satisfaction of the patient/family/POA.
--- NOTE | 2023-09-10 11:52 | WPDHPUPDATE1 ---
History and Physical Update Update Date/Time: 09/10/23 11:52 History and Physical has been reviewed, including an updated exam of the patient. There are NO changes in the patient's condition. The plan has changed slightly to recommend laparoscopic cholecystectomy, da William assisted. The remainder of the assessment and plan remains unchanged. Risks, benefits, and alternatives have been discussed and questions answered. Patient agrees to proceed with procedure.
--- NOTE | 2023-09-10 12:09 | SUR.PREOP ---
Spoke with Dr Cooley. Patient had a baby aug 07, [address]23. Dr Cooley cancelled preg test.
[2023-09-10] MEDS: ceFAZolin 2 GM/D5W 50 ML 2 GM/50 ML BAG IVPB (12:14)
[2023-09-10] MEDS: BUPIVACAINE/EPINEPHRINE 0.5% 50 ML VIAL 30 ML INFILTRATE (12:42)
--- NOTE | 2023-09-10 13:21 | W.PM.PROC2 ---
Procedure Note - Detailed Date of Procedure 09/10/23 Pre-op Diagnosis Symptomatic cholelithiasis Post-op Diagnosis Same Procedure Performed 1. Laparoscopic cholecystectomy with cholangiography, da William assisted 2. Interpretation of cholangiography Surgeon Toro Sanders, Anesthesia General and Local (0.5% bupivacaine) Indications This is a 23-year-old woman who presented to the emergency department just a couple weeks ago with acute onset of upper abdominal pain. She was found to have evidence of cholelithiasis on gallbladder ultrasound. There was no evidence of cholecystitis and white blood count was normal. Her symptoms resolved in the ER and she was able to be discharged. She followed up in the office and further discussions were made with the patient about treatment options. Decision was made to proceed with robotic assisted laparoscopic cholecystectomy. Findings Laparoscopic cholecystectomy was performed. The patient was given indocyanine green intravenously in preop. Near infrared fluorescent imaging was used to help identify the biliary anatomy. The cystic duct was clearly identified as well as the common bile duct. I was able to safely identify the critical view with the assistance of the near infrared fluorescent imaging. The cystic duct appeared normal in size. The gallbladder was removed and sent to the lab for pathology. Description of Procedure Procedure as well as risks, benefits, and alternatives were discussed with the patient. Written consent was obtained and placed in chart prior to procedure. 1.5 mL of indocyanine green was given intravenously in preop. Patient was brought back to surgical suite. She was placed supine on operating table. Time-out was done to confirm patient and procedure. She was then intubated by the anesthesia department. Her abdomen was then prepped and draped in sterile fashion using chlorhexidine prep. 0.5% bupivacaine was infiltrated locally at the site of each port placement. An 8 mm incision was made just superior to the umbilicus and a 5 mm Optiview trocar was then advanced through the abdominal layers under direct visualization. Once inside the abdominal cavity, carbon dioxide insufflation was used to create a pneumoperitoneum. The camera was inserted and the abdomen was inspected. No mediated abnormalities were noted. The patient was placed in 10? reverse Trendelenburg position and rotated 10? to the left. Two 8 mm incisions were made in the right lateral abdomen and 2 8 mm trocars were inserted under direct visualization. A 12 mm incision was made in the left lateral abdomen and a 12 mm trocar was inserted under direct visualization. The 5 mm Optiview trocar was then removed and another 8 mm trocar was inserted in its place. The robotic arms were then brought up to the patient's bedside and secured to each port. The camera and instruments were inserted. I then moved over to the robotic consult to take control of the camera and instruments. The gallbladder was grasped at the fundus and retracted cephalad. The infundibulum of the gallbladder was then grasped and retracted laterally. Hook electrocautery was then used to carefully dissect around the neck of the gallbladder. The cystic duct was identified and a window was created around it using hook electrocautery. The cystic artery was also identified and a window was created behind it using hook electrocautery. Critical view of safety was identified visualizing the cystic duct running directly into the neck of the gallbladder and the cystic artery running directly into the wall the gallbladder. The camera view was switched to firefly mode and the indocyanine green within the gallbladder and cystic duct was clearly visualized. No other structures were noted running into this region and there did not appear to be any obstruction of the cystic duct impeding flow of bile into the gallbladder. The camera mode was switched back to regular mode.
[2023-09-10] MEDS: oxyCODONE HCL (*CRX) 5 MG TAB IR PO (14:22)
== END 2023-09-10 15:14 | disposition home or self-care (01) ==
PROVIDERS: Visit Provider Surgery
PROC: 0FT44ZZ Resection of Gallbladder, Percutaneous Endoscopic Approach (ICD-10-PCS; CPT 47562; principal; 2023-09-10 12:00)
DX: K80.20 Calculus of gallbladder without cholecystitis without obstruction (principal)
CPT/HCPCS: 47563; S2900; 36415; 82150; 86850; 86900; 86901; 88304; A9270; J0690; J1100; J1885; J2250; J2405; J2704; J2710; J7120